=== PATIENT | male | born 1995 | race Caucasian/White ===

== ENCOUNTER 2020-02-27 18:04 | Emergency (ER) | payer OTHER ==
--- NOTE | 2020-02-27 20:20 | Emergency Department Report ---
ED General Adult HPI - General Chief complaint: Eye Problems Stated complaint: PINK EYE Time Seen by Provider: 02/27/20 20:20 Source: patient Mode of arrival: Ambulatory Limitations: No Limitations - History of Present Illness Initial comments: 25-year-old male patient presents with complaints of bilateral eye redness and purulent drainage x3 days. Patient states his symptoms began in the left eye and spread to the right eye 1 day later. He states there is some mild discomfort in that pus began to drain from his eyes today. He denies any vision changes, pain with eye movements, difficulty moving his eyes, injuries to the eyes, contact lens wearing, or foreign body sensation. Patient also denies any joint pains, body aches, or fever/chills/sweats -: Gradual - Related Data Previous Rx's Medication Instructions Recorded Last Taken Type Erythromycin [Erythromycin Ophth 1 cm OU Q4H 7 Days #1 tube 02/27/20 Unknown Rx Oint] Loratadine 10 mg PO QDAY #10 tablet 02/27/20 Unknown Rx Prednisone [predniSONE 10 mg 10 mg PO .TAPER #1 tab.ds.pk 02/27/20 Unknown Rx (6-Day Pack, 21 Tabs)] Allergies Allergy/AdvReac Type Severity Reaction Status Date / Time No Known Allergies Allergy Unverified 02/27/20 18:09 ED Review of Systems ROS: Stated complaint: PINK EYE Other details as noted in HPI Constitutional: denies: chills, fever, malaise, weakness Eyes: eye pain, eye discharge. denies: vision change Respiratory: denies: cough, shortness of breath Gastrointestinal: denies: nausea, vomiting Genitourinary: denies: hematuria Musculoskeletal: denies: joint swelling, arthralgia Skin: denies: rash, lesions, change in color Neurological: denies: headache, numbness, paresthesias, confusion Hematological/Lymphatic: denies: swollen glands ED Past Medical Hx - Past Medical History Previous Medical History?: No - Surgical History Past Surgical History?: No - Social History Smoking Status: Never Smoker Substance Use Type: None - Medications Home Medications: Home Medications Medication Instructions Recorded Confirmed Last Taken Type Erythromycin [Erythromycin Ophth 1 cm OU Q4H 7 Days #1 tube 02/27/20 Unknown Rx Oint] Loratadine 10 mg PO QDAY #10 tablet 02/27/20 Unknown Rx Prednisone [predniSONE 10 mg 10 mg PO .TAPER #1 tab.ds.pk 02/27/20 Unknown Rx (6-Day Pack, 21 Tabs)] ED Physical Exam - General Limitations: No Limitations General appearance: alert, in no apparent distress - Head Head exam: Present: atraumatic, normocephalic - Eye Eye exam: Present: PERRL, EOMI (No pain noted with EOMs), conjunctival injection. Absent: scleral icterus, periorbital swelling, periorbital tenderness - Expanded Eye Exam Expanded Sclera/Conjunctival: Injection: Bilateral (Ecchymosis noted to left portion of left conjunctiva), Exudate: Bilateral (Minimal dried yellow discharge noted in corners of both eyes) - ENT ENT exam: Present: normal orophraynx - Neck Neck exam: Present: full ROM - Respiratory Respiratory exam: Absent: respiratory distress - Cardiovascular Cardiovascular Exam: Present: regular rate - Extremities Exam Extremities exam: Present: full ROM - Neurological Exam Neurological exam: Present: alert, oriented X3, normal gait - Psychiatric Psychiatric exam: Present: normal affect, normal mood - Skin Skin exam: Present: warm, dry, intact, normal color. Absent: rash, cyanosis, diaphoretic, erythema, ecchymosis ED Course Vital Signs 02/27/20 02/27/20 18:09 20:49 Temperature 98.3 F 98.2 F Pulse Rate 84 52 L Respiratory 16 18 Rate Blood Pressure 140/101 136/91 O2 Sat by Pulse 97 100 Oximetry ED Medical Decision Making - Medical Decision Making 25-year-old male patient presents with complaints of bilateral eye redness and purulent drainage x3 days. Patient states his symptoms began in the left eye and spread to the right eye 1 day later. He states there is some mild discomfort in that pus began to drain from his eyes today. He denies any vision changes, pain with eye movements, difficulty moving his eyes, injuries to the eyes, contact lens wearing, or foreign body sensation. Patient also denies any joint pains, body aches, or fever/chills/sweats Bilateral conjunctivitis noted on exam with chemosis of the left eye. Patient denies any vision changes and does not have any pain with EOMs. Will treat for bacterial conjunctivitis. Prednisone given for inflammation ecchymosis. Recommend follow-up with PCP in 3 days. He is well-appearing, his vitals are stable, and he is stable for discharge home. Strict return precautions were discussed in detail with patient in great detail, patient verbalizes understanding. Critical care attestation.: If time is entered above; I have spent that time in minutes in the direct care of this critically ill patient, excluding procedure time. ED Disposition Clinical Impression: Bacterial conjunctivitis of both eyes, Chemosis of left conjunctiva Disposition: DC- TO HOME OR SELFCARE Is pt being admited?: No Condition: Stable Instructions: Conjunctivitis (ED) Prescriptions: Erythromycin [Erythromycin Ophth Oint] 1 cm OU Q4H 7 Days #1 tube Loratadine 10 mg PO QDAY #10 tablet Prednisone [predniSONE 10 mg (6-Day Pack, 21 Tabs)] 10 mg PO .TAPER #1 tab.ds.pk Referrals: PRIMARY CARE, [Primary Care Provider] - 3-5 Days
[2020-02-27 20:51] VITALS: BP 136/91
== END 2020-02-27 21:44 | disposition home or self-care (01) ==
LOC: ED 18:04
DX: H10.89 Other conjunctivitis (principal); B99.8 Other infectious disease; H11.422 Conjunctival edema, left eye
CPT/HCPCS: 99282

== ENCOUNTER 2020-07-24 17:40 | Emergency (ER) | payer OTHER ==
[2020-07-24 17:55] VITALS: BP 171/96
--- NOTE | 2020-07-24 18:06 | Emergency Department Report ---
Chief Complaint: Skin/Abscess/Foreign Body Stated Complaint: LT AXILLA CYST Time Seen by Provider: 07/24/20 18:02 - HPI History of Present Illness: Patient is a 25-year-old male presents emergency room with complaints of a lump to the left axilla that began 4 weeks ago. He has not seen anybody for this. He states that it is causing pain and it hurts when he goes to sleep at night he cannot lay on that side. He denies any fever, drainage, nausea, vomiting, diarrhea, fall, injury. He denies any past medical history. No allergies medications. Vitals are stable On exam: There is a 3 cm nodule to the left axilla which feels like it may be fatty tissue, it is not firm, no induration, no fluctuance, no skin changes, freely movable Symptoms could be possibly related to a left axillary lipoma pt will be referred to dermatology and general surgery. 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 Return to emergency room for any worsening symptoms. Discuss strict return precautions with patient Medical screen examination performed and there is no threat to life or limb at this time - Exam Vital Signs: Vital Signs 07/24/20 17:53 Temperature 98.1 F Pulse Rate 99 H Respiratory 18 Rate Blood Pressure 171/96 O2 Sat by Pulse 99 Oximetry MSE screening note: Focused history and physical exam performed. Due to findings the following was ordered: ED Disposition for MSE Clinical Impression: Skin nodule Disposition: Z-07 MED SCREENING EXAM-LEFT Is pt being admited?: No Does the pt Need Aspirin: No Condition: Stable Additional Instructions: Please follow-up with a general surgeon a wrapper stemmer operator. Return to emergency room for any worsening symptoms. [facility] [facility] [employer] [facility] in [place], [place] Address: [address] [place] [address] Referrals: KENDELL IBANEZ MD [Staff Physician] - 2-3 Days Time of Disposition: 18:05 Print Language: TAJIK
== END 2020-07-24 18:32 | disposition left against medical advice (07) ==
LOC: ED 17:40
DX: Z00.8 Encounter for other general examination (principal); Z53.21 Procedure and treatment not carried out due to patient leaving prior to being seen by health care provider